=== PATIENT | female | born 1990 | race Caucasian/White ===

== ENCOUNTER 2017-11-27 13:12 | Emergency (ER) | payer OTHER ==
[2017-11-27 14:06] LABS: URINE HCG POC HCG NEGATIVE (Negative)
[2017-11-27 14:58] LABS: ADD MAN DIFF? NO
[2017-11-27 15:03] LABS: BASO % 1 % (0-3); EOS # 0.1 x10^3/uL (0.0-0.7); EOS % 1 % (0-3); HEMATOCRIT 38.2 % (36.0-47.0); HEMOGLOBIN 12.6 g/dL (12.0-15.5); LYMPH # 1.9 x10^3/uL (1.0-4.8); LYMPH % 24 % (24-48); MEAN CORPUSCULAR HEMOGLOBIN 27 pg (25-35); MEAN CORPUSCULAR HGB CONC 33 g/dL (31-37); MEAN CORPUSCULAR VOLUME 82 fL (79-100); MONO # 0.5 x10^3/uL (0.0-1.1); MONO % 7 % (0-9); NEUT # 5.4 x10^3uL (1.8-7.7); NEUT % 67 % (31-73); PLATELET COUNT 271 x10^3/uL (140-400); RED BLOOD COUNT 4.67 x10^6/uL (3.50-5.40); RED CELL DISTRIBUTION WIDTH 15.1 % (11.5-14.5)
[2017-11-27 15:54] LABS: BILIRUBIN,URINE NEGATIVE (NEG); CLARITY,URINE CLOUDY; COLOR,URINE YELLOW; GLUCOSE,URINE NEGATIVE (NEG); NITRITE,URINE NEGATIVE (NEG); PH,URINE 5.5; PROTEIN,URINE NEGATIVE (NEG-TRACE); UROBILINOGEN,URINE 0.2 mg/dL (0.2 mg/dL)
[2017-11-27 16:08] LABS: AMORPHOUS SEDIMENT,UR PRESENT /HPF; BACTERIA,URINE 0 /HPF (0-FEW); SQUAMOUS EPITHELIAL CELL,UR FEW /LPF; WBC,URINE RARE /HPF (0-4)
== END 2017-11-27 17:02 | disposition home or self-care (01) ==
LOC: ER 13:12
DX: O20.0 Threatened abortion (principal); Z3A.01 Less than 8 weeks gestation of pregnancy
CPT/HCPCS: 36415; 76830; 76856; 81001; 81025; 84702; 85025; 86850; 86900; 86901; 99285-25

== ENCOUNTER → 2018-04-11 | Outpatient (CLI) | payer OTHER ==
[2017-11-27 14:04] VITALS: BP 136/62
[~2018-04-11] MED LIST: HYDR-971 PO; ONDA4TAB10 PO
--- NOTE | 2018-04-11 17:53 | RAD ---
OB ULTRASOUND, > 14 WEEKS Clinical Indication: DX: Uterine Size Date Discrepancy Comparison: None. Technique: Multiple grayscale images, color Doppler, and M-mode images of the uterus are obtained. Findings: There is a single intrauterine gestation in cephalic presentation. The placenta is fundal in location without evidence of placenta previa. The amount of amniotic fluid appears appropriate. Amniotic fluid index is 10.9 cm. Cervical length is 4.6 cm. Biometrical data: BPD = 4.2 cm for 18 weeks 5 days. HC = 15 cm for 18 weeks 1 days. AC = 12.7 cm for 18 weeks 2 days. FL = 2.5 cm for 17 weeks 3 days. HC/AC ratio = 1.18. Overall, the estimated sonographic gestational age is 18 weeks 1 day for an estimated date of delivery of September 11, 2018. The estimated date of delivery provided by the last menstrual period is September 09, 2018. Estimated weight is 218 +/- 32 grams. A 4 chamber heart is identified with positive cardiac activity. The estimated heart rate is 136 beats per minute. Bilateral upper and lower extremities are identified. There is a three-vessel cord with cord insertion visualized. stomach and urinary bladder are identified. Both kidneys are seen. Images of the spine are limited. No obvious anatomic abnormalities are identified. Impression: Single live intrauterine gestation with estimated sonographic gestational age of 18 weeks and 1 day. Electronically signed by: Delmar Currie MD (04/11/2018 5:49 PM) [id number]
== END | disposition home or self-care (01) ==
LOC: US 15:32
PROVIDERS: ATTEND Obstetrics & Gynecology
DX: O26.842 Uterine size-date discrepancy, second trimester (principal); Z3A.18 18 weeks gestation of pregnancy
CPT/HCPCS: 76805

== ENCOUNTER 2018-06-20 20:57 | Emergency (ER) | payer OTHER ==
[~2018-06-20] VITALS: Ht 170.2 cm; Wt 98.9 kg
[2018-06-20 21:07] VITALS: BP 141/91
[2018-06-20] MEDS ORDERED: AMOX500T PO (21:11)
--- NOTE | 2018-06-20 21:11 | PHYS DOC ---
Past Medical History Past Medical History: No Pertinent History Past Surgical History: Other Additional Past Surgical Histo: LEEP Alcohol Use: None Drug Use: None Adult General Chief Complaint Chief Complaint: EARACHE/EAR PAIN HPI HPI 28-year-old female presents for evaluation of right ear pain. She reports has had an upper respiratory infection for the past week. Her right ear just started hurting today. She has not had any fevers. She is 7 months and has no related complaints. Review of Systems Review of Systems Constitutional: Denies fever or chills [] GI: Denies abdominal pain, nausea, vomiting, bloody stools or diarrhea [] : Denies dysuria or hematuria [] Musculoskeletal: Denies back pain or joint pain [] Integument: Denies rash or skin lesions [] Neurologic: Denies headache, focal weakness or sensory changes [] Endocrine: Denies polyuria or polydipsia [] All other systems were reviewed and found to be within normal limits, except as documented in this note. Allergies Allergies Allergies Coded Allergies Type Severity Reaction Last Updated Verified No Known Drug Allergies 11/27/17 No Physical Exam Physical Exam Constitutional: Well developed, well nourished, no acute distress, non-toxic appearance. [] HENT: Normocephalic, atraumatic,RT TM ERYTHEMA, oropharynx moist, no oral exudates, nose normal. [] Eyes: PERRLA, EOMI, conjunctiva normal, no discharge. [] Neck: Normal range of motion, no tenderness, supple, no stridor. [] Cardiovascular:Heart rate regular rhythm, no murmur [] Lungs & Thorax: Bilateral breath sounds clear to auscultation [] Neurologic: Alert and oriented X 3, normal motor function, normal sensory function, no focal deficits noted. [] Psychologic: Affect normal, judgement normal, mood normal. [] Current Patient Data Vital Signs Vital Signs Date Time Temp Pulse Resp B/P (MAP) Pulse Ox O2 Delivery O2 Flow Rate FiO2 06/20/18 21:07 97.9 82 18 141/91 (108) 98 Room Air 97.9 EKG EKG [] Radiology/Procedures Radiology/Procedures [] Course & Med Decision Making Course & Med Decision Making Pertinent Labs and Imaging studies reviewed. (See chart for details) [Follow-up with primary care doctor, antibiotics for right otitis media. Stable for discharge home.] Dragon Disclaimer Dragon Disclaimer This electronic medical record was generated, in whole or in part, using a voice recognition dictation system. Departure Departure Impression: Primary Impression: Otitis media Disposition: HOME, SELF-CARE Condition: STABLE Referrals: MORGAN AN MD (PCP) Patient Instructions: Otitis Media, Adult Scripts Amoxicillin (AMOXICILLIN) 500 Mg Tablet 1 TAB PO TID, #30 TAB Prov: KANDIS MENDOZA APRN 06/20/18 KANDIS MENDOZA APRN Jun 20, 2018 21:11
== END 2018-06-20 21:15 | disposition home or self-care (01) ==
LOC: ER 20:57
DX: H66.91 Otitis media, unspecified, right ear (principal)
CPT/HCPCS: 99283

== ENCOUNTER 2019-03-28 11:03 | Emergency (ER) | payer OTHER ==
[~2019-03-28] VITALS: Ht 170.2 cm; Wt 90.7 kg
[~2019-03-28 11:03] MED LIST changes: +AMOX500T PO; +HYDR-3164 PO; -HYDR-971 PO
[2019-03-28 11:09] VITALS: BP 153/81
--- NOTE | 2019-03-28 11:25 | PHYS DOC ---
Past Medical History Past Medical History: No Pertinent History Past Surgical History: Other Additional Past Surgical Histo: LEEP Alcohol Use: None Drug Use: None Adult General Chief Complaint Chief Complaint: LACERATION/AVULSION [facility] Patient is a 29 year old female who presents to the emergency department with complaints of a laceration to the tip of her left thumb. Patient states she was cutting vegetables when she accidentally cut the tip of her thumb. She reports that her last tetanus shot was less than 5 years ago. ROS Patient denies any fever, numbness, tingling, or decreased range of motion of the affected thumb. All other ROS is neg unless otherwise noted in HPI. Review of Systems Review of Systems See Above Allergies Allergies Allergies Coded Allergies Type Severity Reaction Last Updated Verified No Known Drug Allergies 11/27/17 No Physical Exam Physical Exam See Above Constitutional: Well developed, well nourished, no acute distress, non-toxic appearance. [] HENT: Normocephalic, atraumatic, bilateral external ears normal, nose normal. [] Eyes: conjunctiva normal, no discharge. [] Neck: Normal range of motion, no stridor. [] Lungs & Thorax: Respirations even and unlabored, no retractions, no respiratory distress Skin: Warm, dry, no erythema, no rash; 0.5 centimeter laceration noted to distal aspect of left thumb near the superior portion of the thumbnail, wound is superficial, no active bleeding. [] Extremities: No tenderness, no cyanosis, no clubbing, ROM intact, no edema. [] Neurologic: Alert and oriented X 3, normal motor function, normal sensory function, no focal deficits noted. [] Psychologic: Affect normal, judgement normal, mood normal. [] Current Patient Data Vital Signs Vital Signs Date Time Temp Pulse Resp B/P (MAP) Pulse Ox O2 Delivery O2 Flow Rate FiO2 03/28/19 11:09 98.4 71 16 153/81 (105) 98 Room Air 98.4 EKG EKG [] Radiology/Procedures Radiology/Procedures The site was cleansed with soap and water, 2 Steri-Strips were placed over the laceration site to close the wound. There was no bleeding. No blood loss. Patient tolerated the procedure well without any complications[] Course & Med Decision Making Course & Med Decision Making Pertinent Labs and Imaging studies reviewed. (See chart for details) [] Dragon Disclaimer Dragon Disclaimer This electronic medical record was generated, in whole or in part, using a voice recognition dictation system. Departure Departure Impression: Primary Impression: Laceration of thumb without foreign body without damage to nail Disposition: 01 HOME, SELF-CARE Condition: STABLE Referrals: MORGAN AN MD (PCP) Patient Instructions: Sterile Tape Wound Closure Additional Instructions: Keep the area clean and dry, the Steri-Strips will come off on their own. Follow-up with her primary care doctor if symptoms persist, return to the ER symptoms worsen. You may take Tylenol or ibuprofen as needed for pain. Problem Qualifiers Primary Impression: Laceration of thumb without foreign body without damage to nail Encounter type: initial encounter Laterality: left Qualified Codes: S61.012A - Laceration without foreign body of left thumb without damage to nail, initial encounter EVA PACHECO APRN Mar 28, 2019 11:25
== END 2019-03-28 11:53 | disposition home or self-care (01) ==
LOC: ER 11:03
DX: S61.012A Laceration without foreign body of left thumb without damage to nail, initial encounter (principal); Y28.8XXA Contact with other sharp object, undetermined intent, initial encounter; Y93.G3 Activity, cooking and baking; Y92.89 Other specified places as the place of occurrence of the external cause; Y99.8 Other external cause status
CPT/HCPCS: 99282

== ENCOUNTER 2019-09-01 13:21 | Emergency (ER) | payer OTHER ==
[~2019-09-01] VITALS: Ht 170.2 cm; Wt 95.3 kg
[2019-09-01 14:25] VITALS: BP 149/87
[2019-09-01] MEDS: ONDANSETRON ODT 4 MG TAB.RAPDIS. PO STA (14:47)
--- NOTE | 2019-09-01 14:47 | PHYS DOC ---
Past Medical History Past Medical History: No Pertinent History Past Surgical History: Other Additional Past Surgical Histo: LEEP Alcohol Use: None Drug Use: None Adult General Chief Complaint Chief Complaint: NAUSEA/VOMITING/DIARRHA HPI HPI Patient is a 29 year old female who presents with fever, headache, loss of appetite, nausea, vomiting, sore throat, runny nose, cough that started 2 weeks ago. The patient also states she has left ear pain. The patient states that she's been using spix-qdw-[id number] medicine help with her symptoms. She is able to keep fluids down at home. Review of Systems Review of Systems Constitutional: Reports fever or chills and body aches. Eyes: Denies change in visual acuity, redness, or eye pain [] HENT: Reports nasal congestion, sore throat, and runny nose. Respiratory: Reports cough. Denies shortness of breath. Cardiovascular: No additional information not addressed in HPI [] GI: Reports nausea and vomiting. Denies abdominal pain, bloody stools or diarrhea [] : Denies dysuria or hematuria [] Musculoskeletal: Denies back pain or joint pain [] Integument: Denies rash or skin lesions [] Neurologic: Reports headache, denies focal weakness or sensory changes [] Endocrine: Denies polyuria or polydipsia [] Complete systems were reviewed and found to be within normal limits, except as documented in this note. Current Medications Current Medications Current Medications Medications (Trade) Dose Ordered Sig/Esme Start Time Stop Time Status Last Admin Dose Admin Ondansetron HCl (Zofran Odt) 4 mg 1X STAT 09/01/19 14:30 09/01/19 14:35 DC 09/01/19 14:47 4 MG Allergies Allergies Allergies Coded Allergies Type Severity Reaction Last Updated Verified No Known Drug Allergies 11/27/17 No Physical Exam Physical Exam Constitutional: Well developed, well nourished, no acute distress, non-toxic appearance. [] HENT: Normocephalic, atraumatic, bilateral external ears normal, bilateral tympanic membranes are pearly gomez, oropharynx moist, no oral exudates, nose turbinates are inflamed. Eyes: PERRLA, EOMI, conjunctiva normal, no discharge. [] Neck: Normal range of motion, no tenderness, supple, no stridor. [] Cardiovascular:Heart rate regular rhythm, no murmur [] Lungs & Thorax: Bilateral breath sounds clear to auscultation [] Abdomen: Bowel sounds normal, soft, no tenderness, no masses, no pulsatile masses. [] Skin: Warm, dry, no erythema, no rash. [] Neurologic: Alert and oriented X 3, normal motor function, normal sensory function, no focal deficits noted. [] Psychologic: Affect normal, judgement normal, mood normal. [] Current Patient Data Vital Signs Vital Signs Date Time Temp Pulse Resp B/P (MAP) Pulse Ox O2 Delivery O2 Flow Rate FiO2 09/01/19 14:25 98.2 67 20 149/87 (107) 100 Room Air 98.2 Lab Values Laboratory Tests Test 09/01/19 14:25 Group A Streptococcus Rapid Negative (NEGATIVE) EKG EKG [] Radiology/Procedures Radiology/Procedures [][facility] [address] [place] [address] IMAGING REPORT Signed PATIENT: LILIANE MORE ACCOUNT: [id number] : 1990 LOCATION: ER AGE: 29 SEX: F EXAM STATUS: REG ER ORD. PHYSICIAN: TRESSA ROSARIO APRN REASON: cough, fever PROCEDURE: CHEST PA & LATERAL CHEST PA LATERAL History: Fever and cough Comparison: None. Findings: Frontal and lateral views of the chest were obtained. The cardiomediastinal silhouette is normal. Pulmonary vasculature is normal. The lungs are clear. No pleural effusion or pneumothorax is seen. There is no acute bone abnormality. IMPRESSION: No acute cardiopulmonary process. Electronically signed by: Sebastian Gil MD (09/01/2019 3:04 PM) [facility] DICTATED and SIGNED BY: SEBASTIAN GIL MD DATE: 09/01/19 1504 Course & Med Decision Making Course & Med Decision Making Pertinent Labs and Imaging studies reviewed. (See chart for details) Will get a strep test. Will also give nausea medicine. Likely has viral illness. The patient appears to have a virus clinically. Discussed with patient the importance of drinking plenty of fluids. I also discussed the importance of rest. It was discussed with the patient that she is contagious and to stay away from others until it has been a week since the start of her symptoms. Discussed with the patient that she can take Zyrtec per label instructions for runny nose. Also discussed the proper control of fever by rotating Tylenol and Ibuprofen at home. Will also prescribe Zofran for nausea. Hipolito Disclaimer Hipolito Disclaimer This electronic medical record was generated, in whole or in part, using a voice recognition dictation system. Departure Departure Impression: Primary Impression: Viral syndrome Disposition: HOME, SELF-CARE Condition: STABLE Referrals: MORGAN AN MD (PCP) Patient Instructions: Viral Syndrome Additional Instructions: Thank you for visiting [facility]. We appreciate you trusting us with your care. If any additional problems come up don't hesitate to return to visit us. Please follow up with your primary care provider so they can plan additional care if needed and know about the problem that you had. If symptoms worsen come back to the Emergency Department. Any concerning symptoms that start such as chest pain, shortness of air, weakness or numbness on one side of the body, running high fevers or any other concerning symptoms return to the ER. Please fill your medications at any pharmacy and follow the prescription instructions. Please drink plenty of fluids. If unable to keep fluids down please return to ER. Please get Tylenol and Ibuprofen over the counter. Give each medication every 6 hours as directed by the medication labels. In order to utilize the peak of the medications stagger the medications to where the child is getting one of the medications every 3 hours. For example if you give Ibuprofen at 3 PM, you then give Tylenol at 6 PM and Ibuprofen again at 9 PM, and then Tylenol at midnight. Please get Zyrtec over the counter and take per label instructions for runny nose. Scripts Ondansetron (ONDANSETRON ODT) 4 Mg Tab.rapdis 1 TAB PO PRN Q6-8HRS PRN for NAUSEA, #16 TAB Prov: TRESSA ROSARIO APRN 09/01/19 TRESSA ROSARIO APRN Sep 01, 2019 14:47
--- NOTE | 2019-09-01 15:07 | RAD ---
CHEST PA LATERAL History: Fever and cough Comparison: None. Findings: Frontal and lateral views of the chest were obtained. The cardiomediastinal silhouette is normal. Pulmonary vasculature is normal. The lungs are clear. No pleural effusion or pneumothorax is seen. There is no acute bone abnormality. IMPRESSION: No acute cardiopulmonary process. Electronically signed by: Sebastian Silva MD (09/01/2019 3:04 PM) [facility]
[2019-09-01] MEDS ORDERED: ONDA4TAB12 PO (15:23)
== END 2019-09-01 15:31 | disposition home or self-care (01) ==
LOC: ER 13:21
DX: B34.9 Viral infection, unspecified (principal)
CPT/HCPCS: 71046; 87070; 87880; 99285; Q0162